=== PATIENT | female | born 1980 | race Caucasian/White ===

== ENCOUNTER 2021-02-04 08:13 | Outpatient (CLI) | payer OTHER, SELFPAY ==
--- NOTE | 2021-02-04 08:19 | MM_ITS ---
WS: [id number] BILATERAL DIGITAL SCREENING MAMMOGRAPHY WITH CAD CLINICAL INFORMATION: SCREENING HISTORY: Screening mammogram. No current complaints. COMPARISON: None. TECHNIQUE: Bilateral CC and MLO views. FINDINGS: Scattered fibroglandular densities bilaterally. No suspicious focal mass, asymmetry, calcifications, or architectural distortion. No evidence of malignancy. MM/[place] [id number] IMPRESSION: BI-RADS: 1-Negative FOLLOW UP: 1 Year Follow-up Recommend return to annual screening mammography.
== END 2021-02-04 08:14 | disposition home or self-care (01) ==
LOC: RADSHAW 08:18
PROVIDERS: Family Provider Nurse Practitioner Family; PCP Electrodiagnostic Medicine; Visit Provider Electrodiagnostic Medicine
DX: Z12.31 Encounter for screening mammogram for malignant neoplasm of breast (principal)
CPT/HCPCS: 77067

== ENCOUNTER 2022-02-05 14:53 | Outpatient (CLI) | payer OTHER, SELFPAY ==
--- NOTE | 2022-02-05 15:19 | MM_ITS ---
WS: [id number] BILATERAL 3D TOMOSYNTHESIS DIGITAL SCREENING MAMMOGRAPHY WITH CAD CLINICAL INFORMATION: SCREENING HISTORY: Screening mammogram. No current complaints. COMPARISON: February 04, 2021 TECHNIQUE: Bilateral CC and MLO views. FINDINGS: Scattered fibroglandular densities bilaterally. Small asymmetric density measuring 5 mm subareolar LE FT breast appears new or more prominent compared to previous. Suggestion of associated ductal ectasia . Recommend further evaluation with spot compression views and ultrasound. This is best seen on the M LO view. RIGHT breast is unremarkable and unchanged. MM/[place] [id number] IMPRESSION: BI-RADS: 0-Incomplete: Need additional imaging evaluation FOLLOW UP: Need Additional Imaging Recommend further evaluation with LEFT diagnostic mammography spot compression views and ultrasound.
== END 2022-02-05 14:54 | disposition home or self-care (01) ==
PROVIDERS: PCP Electrodiagnostic Medicine; Visit Provider Electrodiagnostic Medicine
DX: Z12.31 Encounter for screening mammogram for malignant neoplasm of breast (principal)
CPT/HCPCS: 77063; 77067

== ENCOUNTER 2022-03-03 09:24 | Outpatient (CLI) | payer OTHER, SELFPAY ==
--- NOTE | 2022-03-03 09:41 | MM_ITS ---
WS: [id number] LEFT 3D TOMOSYNTHESIS DIGITAL MAMMOGRAPHY WITH CAD CLINICAL INFORMATION: ABNORMAL MAMMO COMPARISON: February 05, 2022 TECHNIQUE: 3 views of the left breast were obtained. FINDINGS: Scattered fibroglandular densities of the left breast. Stable small asymmetric density measuring 5 mm subareolar LEFT breast. Associated ductal ectasia. Ultrasound is pending. ULTRASOUND BREAST LEFT TECHNIQUE: Ultrasound left breast focused area of concern. CLINICAL INFORMATION: ABNORMAL MAMMO COMPARISON: None. FINDINGS: Ultrasound LEFT breast at the 3 to 4:00 position. Incidental benign cyst with a few visualized dilate d ducts. No suspicious lesions. No lesions to target for biopsy. Recommend return to annual screening mammography. MM/[place] [id number] BI-RADS: 2-Benign FOLLOW UP: 1 Year Follow-up Recommend return to annual screening mammography.
== END 2022-03-03 09:25 | disposition home or self-care (01) ==
LOC: RAD 09:31
PROVIDERS: PCP Electrodiagnostic Medicine; Visit Provider Electrodiagnostic Medicine
DX: R92.8 Other abnormal and inconclusive findings on diagnostic imaging of breast (principal); D24.2 Benign neoplasm of left breast
CPT/HCPCS: 76642; 77061

== ENCOUNTER 2023-03-13 09:02 | Outpatient (CLI) | payer OTHER, SELFPAY ==
--- NOTE | 2023-03-13 09:08 | MM_ITS ---
WS: [id number] BILATERAL SCREENING DIGITAL TOMOSYNTHESIS MAMMOGRAM WITH CAD HISTORY: SCREENING COMPARISON: 03/03/2022 and 02/05/2022, 02/04/2021 Bilateral CC and MLO views with tomosynthesis and synthetic mammography submitted. Computer aided det ection analyzed. Breast composition: The breasts are heterogeneously dense, which may obscure small masses. No suspici ous masses, microcalcifications or architectural distortion. MM/[place] [id number] IMPRESSION: BI-RADS: 1-Negative FOLLOW UP: 1 Year Follow-up
== END 2023-03-13 09:03 | disposition home or self-care (01) ==
PROVIDERS: PCP Electrodiagnostic Medicine; Visit Provider Electrodiagnostic Medicine
DX: Z12.31 Encounter for screening mammogram for malignant neoplasm of breast (principal)
CPT/HCPCS: 77063; 77067

== ENCOUNTER → 2023-12-30 15:16 | Outpatient (BNVA) | payer OTHER, SELFPAY | PROVIDERS: PCP Electrodiagnostic Medicine; Visit Provider Nurse Practitioner Women's Health | DX: Z12.4 Encounter for screening for malignant neoplasm of cervix (principal) | CPT/HCPCS: 87624 ==

== ENCOUNTER 2024-03-23 09:20 | Outpatient (CLI) | payer OTHER, SELFPAY ==
--- NOTE | 2024-03-23 09:28 | MM_ITS ---
WS: [id number] BILATERAL SCREENING DIGITAL TOMOSYNTHESIS MAMMOGRAM WITH CAD HISTORY: SCREENING COMPARISON: 03/13/2023, 03/03/2022 Bilateral CC and MLO views with tomosynthesis and synthetic mammography submitted. Computer aided det ection analyzed. Breast composition: The breasts are heterogeneously dense, which may obscure small masses. No suspici ous masses, microcalcifications or architectural distortion. MM/[place] [id number] IMPRESSION: BI-RADS: 1-Negative FOLLOW UP: 1 Year Follow-up
== END 2024-03-23 09:21 | disposition home or self-care (01) ==
PROVIDERS: PCP Electrodiagnostic Medicine; Visit Provider Electrodiagnostic Medicine
DX: Z12.39 Encounter for other screening for malignant neoplasm of breast (principal)
CPT/HCPCS: 77063; 77067

== ENCOUNTER 2025-03-24 08:50 | Outpatient (CLI) | payer OTHER, SELFPAY ==
--- NOTE | 2025-03-24 09:00 | MM_ITS ---
WS: [id number] SCREENING DIGITAL BREAST TOMOSYNTHESIS MAMMOGRAM WITH CAD HISTORY: Z12.39 - Encounter for other screening for malignant neop... COMPARISON: 03/23/2024, 03/13/2023 and 03/03/2022 Bilateral CC and MLO with tomosynthesis and synthetic mammography submitted. Computer aided detection analyzed. Breast composition: The breasts are heterogeneously dense, which may obscure small masses. New well-circumscribed 4 x 3 x 5 mm mass in the central LEFT breast just below the nipple. This is probably at 5-6 o'clock. No additional suspicious grouping of calcifications. MM/MM scr [place] tomosynthesis [id number] IMPRESSION: BI-RADS: 0 - Incomplete: Need additional imaging evaluation FOLLOW UP: Need Additional Imaging Recommendation: LEFT breast ultrasound, limited
== END 2025-03-24 08:51 | disposition home or self-care (01) ==
PROVIDERS: PCP Electrodiagnostic Medicine; Visit Provider Nurse Practitioner Women's Health
DX: Z12.31 Encounter for screening mammogram for malignant neoplasm of breast (principal); R92.333 Mammographic heterogeneous density, bilateral breasts; N63.23 Unspecified lump in the left breast, lower outer quadrant
CPT/HCPCS: 77063; 77067

== ENCOUNTER 2025-04-17 08:20 | Outpatient (CLI) | payer OTHER, SELFPAY ==
--- NOTE | 2025-04-17 08:30 | US_ITS ---
WS: [id number] ULTRASOUND LEFT BREAST, limited HISTORY: ABNORMAL MAMMO COMPARISON: 03/24/2025, 03/23/2024 TECHNIQUE: 2-D and Doppler. Mass noted in the lateral LEFT breast on prior mammogram is a cyst. The cyst measures 6 x 5 x 3 mm and is located at 5:00, 1 cm from the nipple. There is through transmission. No solid mass. US/US breast LT limited* [id number] IMPRESSION: BI-RADS: 2- Benign FOLLOW-UP: 1 Year Follow-up Return to annual screening mammography. Simple cyst LEFT breast.
== END 2025-04-17 08:21 | disposition home or self-care (01) ==
LOC: RAD 08:21
PROVIDERS: PCP Electrodiagnostic Medicine; Visit Provider Nurse Practitioner Women's Health
DX: R92.8 Other abnormal and inconclusive findings on diagnostic imaging of breast (principal); N60.02 Solitary cyst of left breast
CPT/HCPCS: 76642